=== PATIENT | male | born 1975 | race Caucasian/White ===

== ENCOUNTER 2025-03-05 09:48 | Outpatient (AMB) | payer MEDICARE, MEDICAID, SELFPAY ==
[2025-03-05 10:22] VITALS: BP 136/90; PULSE 80; RESP 16; O2SAT 97
--- NOTE | 2025-03-05 10:22 | MHC.OFFVIS ---
Vital Signs 03/05/25 10:22 BP 136/90 H Blood Pressure Location Lt brachial Position Sitting Respiration 16 Pulse 80 Pulse Oximetry (%) 97 Intake Visit Reasons: 6M Myelopathy Facility Practice Specialist Required: No Correctional Captain: Correctional Captain Present Allergies phenytoin (From Dilantin) Allergy (Unknown, Verified 03/05/25 10:22) Unknown Medication List - Last Reconciled 03/05/25 by Susan Diaz CNP baclofen 5 mg PO DAILY calcium citrate-vitamin D3 200 mg-6.25 mcg (250 unit) tabs PO carbamazepine ER 100 mg PO BID famotidine 20 mg PO BID fluvoxamine 100 mg PO BID tamsulosin mg PO HPI Comments Details: Claudy is a 49-year-old male patient with a history of CP following in the clinic for a diagnosis of cervical myelopathy and seizures. He was last seen in August of 2024 by Susie MAC at which time he reported some improvement in his right leg weakness, no seizures, no trouble when eating drinking or swallowing. According to documentation, it been admitted to [facility] with diagnosis of transverse myelitis with Neurosurgery consult for cervical cord compression which is chronic and he was advised against surgery. He does also have history of cerebral palsy, seizure disorder, autism, and OCD. It was in August of 2022 there was a dramatic and progressive change in his ability to ?get around? and he was initially dragging his toes and feet with knee started to buckle. There was also some weakening in the core muscles but without significant change in the use of his arms. Seemingly, with her via documentation, he has been relatively stable since this time. He presents to the clinic today accompanied by his mother and a long-term staff member. Together they report that Claudy has been much more stiff lately and that he has been seemingly more uncomfortable due to his lower extremity stiffness. His overall function has been only slightly impacted though his mother expresses the desire to maintain his ability to comfortably transfer out of his wheelchair with some weight bearing. Had been on baclofen in the past which his mother recalls working well though may have caused him somnolence. She cannot recall the dose that he had been on prior. He has not had any known seizure activity and he remains on carbamazepine 100mg twice daily. [facility] Medical History (Updated 03/08/25 @ 22:47 by Susan Bechthold, [employer]) Seizure disorder Autism Cervical myelopathy Review of Systems Const All systems reviewed & are unremarkable except as noted in HPI and below Physical Exam Vital Signs: Last Vital Signs Pulse 80 03/05/25 10:22 Resp 16 03/05/25 10:22 BP 136/90 H 03/05/25 10:22 Pulse Ox 97 03/05/25 10:22 Const General: cooperative, no acute distress and other (Repeats others around him) Orientation/consciousness: oriented to person Neuro General: oriented to person and Unable to assess gait Cognition (Neuro): abnormal cognition (Follows simple commands, repeats others around him, difficult comprehension) Gait exam (Neuro): Unable to assess gait Motor exam (neuro): Abnormal muscle tone present (Stiffness to the BLE at the hips, knees, and ankles bilaterally) Deep tendon reflexes (DTR's): Rt Biceps (C5, C6): 2+, Left biceps reflex intensity grade: 2+, Right brachioradialis reflex intensity grade: 2+, Left brachioradialis reflex intensity grade: 2+, Right patellar reflex intensity grade: 3+, Left patellar reflex intensity grade: 3+, Right ankle reflex intensity grade: 2+ and Left ankle reflex intensity grade: 2+ Assessment & Plan Assessment & Plan (1) Seizure disorder: Code(s): G40.909 - Epilepsy, unspecified, not intractable, without status epilepticus Category: Medical (2) Cervical myelopathy: Code(s): G95.9 - Disease of spinal cord, unspecified Category: Medical (3) Muscle stiffness: Code(s): M62.89 - Other specified disorders of muscle Category: Medical Plan Claudy is a 49-year-old male patient with a history of CP following in the clinic for a diagnosis of cervical myelopathy and seizures. He has not had any recent seizures that anyone is aware of. The primary concern today is regarding some muscle stiffness to his lower extremities and his ability to maintain function. I am recommending PT. Family and staff both request in-home PT as it would be extremly difficult to complete this out of the home. I am also recommending a trial of low dose baclofen to assist with the muscle stiffness and discomfort. Could consider referral to physical medicine and rehabilitation at [facility] if needed in future. -Home PT for worstening stiffness of lower extremities -Baclofen low dose (start with 5mg daily) will eventially increase to 5mg twice daily if tollerating. Can continue increasing if indicated/tollerated in future. -Follow-up 4 months Medications: New baclofen 5 mg PO DAILY 30 tabs 5RF Coding Level of Care Code Est Pt Level 4 (74901) Diagnoses Seizure disorder G40.909 Cervical myelopathy G95.9 Muscle stiffness M62.89
--- OUTSIDE RECORDS SUMMARY | 2025-03-05 11:44 | XMS_ITS | Encounter Summary ---
Author Organization [facility] Address [address] [place] [address] Phone Care Team Providers Care Lift Supervisor Name Role Phone Luiza Tinsley MD Unavailable [phone] Luiza Tinsley MD Primary Care Provider [phone] Ava Bruno MD Unavailable [phone] Encounter Details Date Type Department Care Team (Late st Contact Info) Description 06/29/[address] [phone] Luiza Tinsley MD [address] [place] [phone] Social History Tobacco Use Types Packs/Day Years Used Date Smoking Tobacco: Never Smokeless Tobacco: Never Sex and Gender Information Value Date Recorded Sex Assigned at Not on file Legal Sex Male 9:30 PM EDT Gender Identity Not on file Sexual Orientation Not on file documented as of this encounter Plan of Treatment Upcoming Encounters Date Type Department Care Team (Late st Contact Info) Description 03/12/2025 10:00 AM EDT Office Visit [address] [address] Luiza Tinsley MD [address] [place] [address] [phone] documented as of this encounter Visit Diagnoses Not on filedocumented in this encounter Additional Health Concerns Infection Onset Date Last Indicated Resolved Time CoV-Risk 09/10/2023 09/10/2023 09/21/2023 1:21 AM EDT CoV-Risk 02/20/2024 02/20/2024 03/02/2024 1:23 AM EDT documented as of this encounter Care Teams Lift Supervisor Relationship Specialty Start Date End Date Luiza Tinsley MD [address] [place] [address] [address] [place] [address] [email or web address] PCP - General Family Medicine 11/12/19 Luiza Tinsley MD [address] [place] [address], [facility] [address] [place] [address] [email or web address] Insurance Assigned Provider 09/15/23 Ava Bruno MD [address] [place] [address] [place] [address] Neurology 12/13/22 documented as of this encounter Additional Source Comments The information contained in this document represents components of the legal health record. It is not the complete legal health record.[facility]
--- OUTSIDE RECORDS SUMMARY | 2025-03-05 11:44 | XMS_ITS | Encounter Summary ---
Author Organization [facility] Address [address] [place] [address] [place] [phone] Phone Care Team Providers Care Manager Pharmaceutical Name Role Phone Luiza Tinsley MD Unavailable [phone] Luiza Tinsley MD Primary Care Provider [phone] Ava Bruno MD Unavailable Encounter Details Date Type Department Care Team (Late st Contact Info) Description 12/13/2022 Procedure Pass [facility], [address] [address] Social History Tobacco Use Types Packs/Day Years Used Date Smoking Tobacco: Never Smokeless Tobacco: Never Education Answer Date Recorded Are you interested in more education? Not on jose e 10/06/2022 Are you concerned about learning? Not on file 10/06/2022 No 10/06/2022 No 10/06/2022 Digital Access Answer Date Recorded No 11/06/2022 No 11/06/2022 Reliable internet access at home? Not on file 11/06/2022 Device with a working camera? Not on file Sex and Gender Information Value Date Recorded Sex Assigned at Not on file Legal Sex Male 9:30 PM EDT Gender Identity Not on file Sexual Orientation Not on file documented as of this encounter Plan of Treatment Upcoming Encounters Date Type Department Care Team (Late st Contact Info) Description 03/12/2025 10:00 AM EDT Office Visit [facility] [address] [place] [address] Luiza Tinsley MD [address] [facility], [facility] [address] [place] [address] [email or web address] documented as of this encounter Visit Diagnoses Not on filedocumented in this encounter Additional Health Concerns Infection Onset Date Last Indicated Resolved Time CoV-Risk 09/10/2023 09/10/2023 09/21/2023 1:21 AM EDT CoV-Risk 02/20/2024 02/20/2024 03/02/2024 1:23 AM EDT documented as of this encounter Care Teams Manager Pharmaceutical Relationship Specialty Start Date End Date Luiza Tinsley MD [address] [place] [phone] [email or web address] PCP - General Family Medicine 11/12/19 Luiza Tinsley MD [address] [place] [address] [email or web address] Insurance Assigned Provider 09/15/23 Ava Bruno MD [address] [place] [address] [place] [address] Neurology 12/13/22 documented as of this encounter Additional Source Comments The information contained in this document represents components of the legal health record. It is not the complete legal health record.[facility]
--- OUTSIDE RECORDS SUMMARY | 2025-03-05 11:44 | XMS_ITS | Encounter Summary ---
Author Organization [facility] Address [address] [place] [address] [place] [phone] Phone Care Team Providers Care Smokehouse Worker Name Role Phone Luiza Tinsley MD Unavailable [phone] Luiza Tinsley MD Primary Care Provider [phone] Ava Bruno MD Unavailable [phone] Encounter Details Date Type Department Care Team (Late st Contact Info) Description 12/12/2022 Procedure Pass [facility], [facility] - [address] [address] Social History Tobacco Use Types Packs/Day Years [...] Description 03/12/2025 10:00 AM EDT Office Visit [facility] [address] [place], [place] [phone] Luiza Tinsley MD [address] [facility], [facility] [address] [place] [address] [email or web address] documented as of this encounter Visit Diagnoses Not on filedocumented in this encounter Additional Health Concerns Infection Onset Date Last Indicated Resolved Time CoV-Risk 09/10/2023 09/10/2023 09/21/2023 1:21 AM EDT CoV-Risk 02/20/2024 02/20/2024 03/02/2024 1:23 AM EDT documented as of this encounter Care Teams Smokehouse Worker Relationship Specialty Start Date End Date Luiza Tinsley MD [address] [place] [address] [address] [place] [phone] [email or web address] PCP - General Family Medicine 11/12/19 Luiza Tinsley MD [address] [place] [address] 7 [place] [address] [email or web address] Insurance Assigned Provider 09/15/23 Ava Bruno MD [address] [place] [address] [place] [address] Neurology 12/13/22 documented as of this encounter Additional Source Comments The information contained in this document represents components of the legal health record. It is not the complete legal health record.[facility] [place] [facility]
--- OUTSIDE RECORDS SUMMARY | 2025-03-05 11:44 | XMS_ITS | Clinical Summary ---
Author Organization [facility] Address [address] [facility] [address] [place] [id number] Phone Care Team Providers Care House Wrecker Name Role Phone Luiza Tinsley MD Unavailable [phone] Luiza Tinsley MD Primary Care Provider Ava Bruno MD Unavailable [phone] Allergies Active Allergy Reactions Criticality Noted Date Comments Bleach (Sodium Hypochlorite) 11/08/2017 Pt doesn't know which reaction Phenytoin Sodium Extended 11/08/2017 Pt is unaware of which kind of reaction Udrmhiw-Vfo-Qje Reductase Inhibitors 11/08/2017 Pt doesn't know which reaction Medications ketoconazole (NIZORAL) 2 % shampoo USE THREE TIMES PER WEEK ON MON, WED, AND FRI 120 mL 4 Active Additional Information Patient not taking.Reported on 12/26/2024 loratadine (CLARITIN) 10 mg tabletIndication s:Seasonal allergies Take 1 tablet (10 mg total) by mouth daily as needed for allergies (for itchy/watery eyes or runny nose). 30 tablet 2 4 Active calcium citrate-vitamin D3 (CITRACAL+D) 950 mg (200 mg elemental)-250 units Tab TAKE 2 TABLETS (CALCIUM CITRATE 400 MG / VIT D 500 UNITS) BY MOUTH DAILY IN AM A NUTRITIONAL SUPPLEMENT 60 tablet 11 5 Active bacitracin 500 unit/gram ointmentIndicati ons:Medication refill APPLY A SMALL AMOUNT TOPICALLY TO MINOR CUTS AND SCRAPES DAILY NEEDED - CALL PCP IF NOT IMPROVED IN 24 HOURS 28 g 3 5 Active white petrolatum ointment APPLY A SMALL AMOUNT TOPICALLY INTO NOSTRILS NEEDED FOR NOSE BLEEDS IC: VASELINE 368 g 1 5 Active diclofenac sodium (VOLTAREN) 1 % Gel APPLY A SMALL AMOUNT TOPICALLY TO AFFECTED JOINTS NEEDED FOR PAIN UP TO TWO TIMES PER DAY CALL MD IF NOT EFFECTIVE IN 48 HRS 100 g 2 5 Active guaiFENesin (ALVARADO-TUSSIN) 100 mg/5 mL syrupIndications :Medication refill TAKE 10ML (200 MG) BY MOUTH EVERY 4 HOURS NEEDED FOR CHEST CONGESTION / CALL PCP IF NOT IMPROVED IN 3 DAYS OR WITH TEMP ABOVE 100 DEGREES 236 mL 3 5 Active selenium sulfide 2.25 % Sham APPLY TOPICALLY TWO TIMES A WEEK 180 mL 5 Active acetaminophen (TYLENOL) 325 mg tabletIndication s:Medication refill TAKE 2 TABS (650 MG) BY MOUTH EVERY 6 HOURS NEEDED FOR COMPLAINT OF HEADACHE, PAIN, OR FEVER OVER 100 DEGREES / CALL PCP IF SYMPTOMS LAST OVER 48 HRS 30 tablet 2 5 Active famotidine (PEPCID) 20 MG tablet TAKE 1 TABLET BY MOUTH TWICE DAILY FOR ACID REFLUX 180 tablet 3 5 Active polyethylene glycol (MIRALAX) 17 gram/dose powderIndication s:Chronic idiopathic constipation Take 17 g by mouth every morning. 1700 g 3 5 Active fluvoxaMINE (LUVOX) 100 MG tabletIndication s:Medication refill TAKE 2 TABLETS (200 MG) BY MOUTH EVERY NIGHT AT BEDTIME FOR OCD 180 tablet 3 5 Active magnesium hydroxide 400 mg/5 mL SuspIndications: Constipation TAKE 30 ML (2,400 MG) BY MOUTH NEEDED IF NO BOWEL MOVEMENT IN 3 DAYS / FOR CONSTIPATION CALL MD IF NO RESULTS IN 24 HOURS / GIVE ON 2ND SHIFT 354 mL 2 5 Active carBAMazepine (TEGRETOL XR) 100 MG 12 hr tabletIndication s:Seizure disorder TAKE 1 TABLET BY MOUTH TWICE DAILY FOR SEIZURES 60 tablet 3 5 Active Active Problems Problem Noted Date Diagnosed Date Rash and other nonspecific skin eruption 025 Assessment & Plan (01/05/2025 11:39 AM EDT): Uday's rash of the left groin is improving. I advised his butt welder to continue with powder-I refilled this today. Follow-up if this does not improve or if this gets worse. They understand and agree. Urinary urgency 12/26/2024 Assessment & Plan (01/05/2025 11:40 AM EDT): Uday's urinary urgency has improved with the improvement in the rash-this is likely secondary to an irritant. I advised him and his butt welder to continue with the powder. They will call if there are any other issues or concerns. They understand and agree. I have maintained a long-term relationship with the patient, overseeing the care of their urinary urgency. This has significantly influenced my decision-making and treatment plans during today's encounter. Assessment & Plan (12/26/2024 3:36 PM EDT): Uday presents with his mom and butt welder for urinary urgency which has been going on for the past 6 months and getting worse. No blood in the urine, no nausea or vomiting. No fevers or chills. He had 2 urinalysis with reflex as-both were negative this month and last month. I did not repeat them today. I ordered a PSA, CMP and CBC and I will update him with the results. I suspect an enlarged prostate. I placed a referral to urology for consult today. I gave guidance to follow-up with PCP in 2 weeks and to call if this is getting worse or if his symptoms are changing. They understand and agree to the plan of action. Screening for prostate cancer 12/26/2024 Assessment & Plan (12/26/2024 3:35 PM EDT): Uday is due for PSA-I will update him with result. Chronic idiopathic constipation 10/09/2024 Overview (10/09/2024): 10/2024 start miralax daily 1 cap Skin lesion of back 05/16/2024 Assessment & Plan (05/16/2024 3:55 PM EST): Uday presents from his skilled nursing by his caretakers today for a changing nevus on his back. I put a referral to dermatology for consult. They were appreciative. I informed him to call if there are any other issues or concerns. Paperwork filled out today in the office. Mixed hyperlipidemia 04/17/2024 Overview (11/06/2024): Ldl is high but mom and dad both had bad reactions to statins and they dont want him to try. Mom had anaphylaxis and dad has muscle cramps His risk is only 3.9% 2023 Mom does not want him to try statin 10/2024 we will get CAC score as his LDL is high and both parents have vascular disease it seems. We should refer to preventive cards if this is above 0. - it is 0!! Seasonal allergies 10/09/2023 Overview (10/09/2023): Claritin 10 mg as needed for runny nose and itchy eyes Urinary incontinence 09/10/2023 Assessment & Plan (09/10/2023 10:30 AM EDT): Uday has been experiencing some urinary incontinence. This may be a stress response secondary to the coughin but I also want to rule out a UTI thus ordered a urinalysis with reflex today and I will update him with the result. I informed his butt welder to call if there are any other issues or concerns such as a fever. They understand and agree. 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 Assessment & Plan (12/25/2022 2:21 PM EDT): Uday was admitted to [facility] on 12/14/2022 and discharged on 12/19/2022 for a cord compression. I reviewed the MRI that was done at [facility]. He has appoint with Dr. Stevo Nguyen in January. His mom will call if there are any other issues or concerns. 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 No cause found. Still working on getting full strength back. Assessment & Plan (12/25/2022 2:23 PM EDT): Uday was diagnosed with myelitis while at [facility]- 12/14/2022 through 12/19/2022. He was given steroids. His infection improved. His mom and sister note that he is back to baseline. I will have him go for CBC and a CMP and I will update him with the results. They will call if there are any other issues or concerns. Follow-up with her PCP in 3 months. They understand and agree. Weight loss 03/23/2021 Overview (03/28/2022): Usually 120 lbs 2020 had 20 lb weight loss and has gained some back Now 113 but stable Now 127, much healthier Cerebral palsy 11/08/2017 Overview (11/19/2018): Well cared for in skilled nursing and by family Assessment & Plan (01/05/2025 11:39 AM EDT): Currently well cared for by his skilled nursing and mom. Eczema 11/08/2017 Overview (11/08/2017): mixed with jluis derm on face - low dose steroids and antifungal mod dose top steroid on body Routine health maintenance 11/08/2017 Overview (04/11/2024): No need for cancer screening right now - doing FIT test for now. Mom says that he could not do colonoscopy. His dad does testicular exam Labs yearly for his tegretol here We will start calcium and D for his bone health Eyes, dental Skin checks at his home Seizure disorder 11/08/2017 Overview (11/19/2018): no seizue activity since he was 12. he does not see neuro anymore. we prescribe and do labs. tegretol should do labs for carbamazepine yearly. blood conc cbc and diff iron yearly hepatic fcn BUN urinalysis ophth exam Mixed obsessional thoughts and acts 11/08/2017 Overview (2023): seeing psych and being treated with luvox which is helping with this and irritability. i am taking over this rx. he is taking 200 mg IR once daily at HS. could try BID if he starts to not do well on this. self injury was the original reason for meds 03/2023 we will try to increase his Luvox back to 200 from 150 to see if this helps with his outbursts. Resolved Problems Problem Noted Date Diagnosed Date Resolved Date Sore throat 09/10/2023 10/09/2023 Assessment & Plan (09/10/2023 10:30 AM EDT): Uday presents with his caretakers for sore throat going on for the past week or so. I ordered a strep test to be done and I will update him with the result. He may have seasonal allergies thus I wrote for Claritin-to be taken daily for the next month. I filled out paperwork today for his skilled nursing. Follow-up as needed or if his symptoms are getting worse. His caretakers understand and agree. Acute cough 09/10/2023 04/11/2024 Assessment & Plan (02/20/2024 12:19 PM EDT): Likely viral uri, symptoms improved with tussin. No concerning findings, no indication for CXR today as lung exam is nonconcerning. Advised to continue supportive medications and stay well hydrated. Follow up for worsening symptoms to include fever or shortness of breath. Cephied pending, will call with positive results. Assessment & Plan (09/10/2023 10:29 AM EDT): Uday presents with a cough from his skilled nursing. This is been going on a week now. I will have him go for a COVID, RSV, flu test today and I will update him with the result. I gave guidance regarding symptomatic management for now and add Claritin to be taken daily for the next month to see if this will help as this may be seasonal allergies. I advised him to get a chest x-ray later this week if his cough continues-I wrote the phone number down for his caretakers. Follow-up as needed-earlier if his symptoms are getting worse. Medication refill 12/25/2022 2023 Assessment & Plan (12/25/2022 2:24 PM EDT): I refilled his Luvox today-to be taken as directed. Follow-up with the PCP in 3 months. Weakness 12/25/2022 2023 Assessment & Plan (12/25/2022 2:24 PM EDT): Uday's weakness improved status post getting steroids for his myelitis. He still has ongoing weakness and I do want him to go for physical therapy. He is homebound thus I put a referral into home health care. His mom was appreciative. They will call if there are any other issues or concerns. Swallowing disorder 12/25/2022 04/11/20 Assessment & Plan (12/25/2022 2:23 PM EDT): I referred him to ENT for a consult regarding ongoing issues with swallowing. Encounters Date Type Department Care Team Description 01/21/2025 Telephone [facility] [address] [place] [address] Luiza Tinsley MD Forms & Paperwork 01/05/2025 11:15 AM EDT Office Visit [facility] [address] [place] [address] Fernando Elliott DO Rash and other nonspecific skin eruption (Primary Dx); Urinary urgency; Cerebral palsy, unspecified type 01/05/2025 Refill [facility] [address] [place] [address] Leslie Morse PA-C Medication Refill 12/30/2024 Telephone [facility] [address] [place] [address] Luiza Tinsley MD Follow Up Visit (ED FUV + 12/28 + rash + unable to schedule) 12/28/2024 1:29 AM EDT - 12/28/2024 2:19 AM EDT Emergency [facility] [address] [place] [address] Jose Whaley, DO Discharge Disposition: Home or Self Care 12/26/2024 3:39 PM EDT - 12/26/2024 11:59 PM EDT Hospital Encounter [facility] [address] [place] [address] Fernando Elliott, DO Discharge Disposition: Home or Self Care 12/26/2024 3:15 PM EDT Office Visit [facility] [address] [place] [address] Fernando Elliott, DO Urinary urgency (Primary Dx); Screening for prostate cancer 12/23/2024 12:06 PM EDT - 12/23/2024 11:59 PM EDT Hospital Encounter [facility] [address] [place] [address] Sabino José MD Discharge Disposition: Home or Self Care 12/19/2024 Orders Only [facility] [address] [place] [address] Sabino José MD Urinary frequency (Primary Dx) 12/19/[address] [address] Luiza Tinsley MD Triage (Green call - Pt still has UTI symptoms - last lab was 11/20) 12/09/2024 10:00 AM EDT Office Visit [address] [address] Desmond Nair, MAILER Tinea of groin (Primary Dx) 12/08/[address] [address] Luiza Tinsley MD Triage (Nurse callback-rash left side of thigh) from Last 3 Months Immunizations Immunization Administration Dates Next Due COVID-19 (Pre-04/02) Pfizer Vaccine, mRNA, PF 03/30/2021,07/22/2020,07/01/2020 COVID-19 Moderna Spikevax Vaccine 12+ 04/23/2024 Hepatitis B, unspecified formulation 08/30/2005, 09/19/2004,08/19/2004 INFLUENZA, SPLIT VIRUS, TRIVALENT PF 03/16/2016 INFLUENZA, SPLIT VIRUS, TRIV ALENT W/ PRESERVATIVE IM 03/28/2022,04/18/2011 Influenza Quadrivalent Prese rvative Free IM 03/22/2023,03/28/2022,03/23/2021,04/08,03/14/2018,02/27/2017,04/11/2007 Influenza Quadrivalent w/ Pr eservative IM 04/02/2015 Influenza Recombinant Johnny valent Preservative Free IM 05/20/2019 Influenza trivalent preserva tive free intradermal 03/26/2014,04/24/2013 Influenza, Unspecified Formulation 04/23/2012 PPD Test 08/17/2004 Pneumococcal polysaccharide PPSV23 08/19/2004 Td (adult) 5 Lf Tetanus Toxo id, PF, Adsorbed 08/17/2004 Tdap 07/27/2015 Zoster recombinant 05/16/2024 Family History Medical History Relation Comments Benign prostatic hyperplasia Father Bladder Cancer Father Coronary artery disease Father Melanoma Father Skin cancer Father CV disease Maternal Grandfather Cancer Maternal Grandmother Coronary artery disease Mother Other Mother mixed ct disease Cancer Paternal Grandmother Relation Status Comments Father Alive Maternal Grandfather Alive Maternal Grandmother Mother Alive Paternal Grandmother Social History Tobacco Use Types Packs/Day Years Used Date Smoking Tobacco: Never Smokeless Tobacco: Never Tobacco Cessation:Counseling Given: Not Answered Home Health Assessment: Transportation Answer Date Recorded Lack of Transportation (Medical) No 05/11/2023 Lack of Transportation (Non-Medical) No 05/11/2023 Patient Unable or Declines to Respond No 05/11/2023 Child or Family Care Answer Date Record ed Do you have problems with on e of the following making it difficult for you to work, study, or receive health care? No 04/04/2023 Education Answer Date Recorded Are you interested in help w ith more adult education (for example, completing high school, GED, job training, learning the Nepali language, technical skills, or developing parenting skills)? No 04/04/2023 Are you concerned about learning? Not on file 04/04/2023 No 04/04/2023 Yes 04/04/2023 Food Answer Date Recorded Within the past 6 months we worried whether our food would run out before we got money to buy more. Never True 12/28/2024 Within the past 6 months the food we bought just didn't last and we didn't have enough money to get more. Never True Residential Stability Answer Date Recor ded What is your housing situation today? I have yue sing 12/28/2024 How many times have you move d in the past 12 months? Zero (I did not move) 12/28/2024 Paying for Meds Answer Date Recorded Do you have trouble paying for medicines? No 12/28/2024 Paying Utility Bills Answer Date Record ed Do you have trouble paying your heating or elect ricity bill? No 12/28/2024 Transportation Answer Date Recorded Has the lack of transportati on kept you from medical appointments or from getting medications? No 12/28/2024 Digital Access Answer Date Recorded No 12/28/2024 Yes 12/28/2024 Do you have reliable internet access at home? Ye s 12/28/2024 Do you have a device (e.g., phone, tablet, computer) with a working camera? Yes 12/28/2024 Intimate Partner Violence Answer Date R ecorded Are you denied basic needs s uch as food, clothing, or medical care? No 12/28/2024 In the past 12 months have y ou been in a relationship with a person who hurts, threatens, or tries to control you? No 12/28/2024 Are you denied basic needs s uch as food, clothing, or medical care? No 12/28/2024 In the past 12 months have y ou been in a relationship with a person who hurts, threatens, or tries to control you? No 12/28/2024 Sex and Gender Information Value Date Recorded Sex Assigned at Not on file Legal Sex Male 9:30 PM EDT Gender Identity Not on file Sexual Orientation Not on file Last Filed Vital Signs Vital Sign Reading Time Taken Comments Blood Pressure 118/76 01/05/2025 11:25 AM EDT Pulse 79 01/05/2025 11:25 AM EDT Temperature 36.5 C (97.7 F) 01/05/2025 11:25 AM EDT Respiratory Rate 16 12/28/2024 1:22 AM EDT Oxygen Saturation 99% 01/05/2025 11:25 AM EDT Inhaled Oxygen Concentration - - Weight 63.5 kg (140 lb) 12/28/2024 1:22 AM EDT Height 154.9 cm (5' 1 ) 01/05/2025 11:25 AM EDT Body Mass Index 26.45 12/28/2024 1:22 AM EDT Plan of Treatment Upcoming Encounters Date Type Department Care Team (Late st Contact Info) Description 03/12/2025 10:00 AM EDT Office Visit [facility] [address] [place] [address] Luiza Tinsley MD [address], [address] [place] [address] [email or web address] Health Maintenance Due Date Last Done Comments COLOGUARD 2019 COLONOSCOPY 2019 FOBT 2019 SIGMOIDOSCOPY 2019 VIRTUAL COLONOSCOPY 2019 COLORECTAL CANCER SCREENING 10/10/2024 FIT TEST 10/10/2024 10/11/2023, 01/02/2020 INFLUENZA VACCINE (#1) 2025 , 03/22/2023, 03/28/2022, Additional history exists DEPRESSION SCREENING 04/09/2025 04/09/2024 CARBAMAZEPINE (TEGRETOL) LEVEL 04/16/2025 04/16/2024, 2023, 01/10/2022, Additional history exists LIPID PANEL 04/16/2025 04/16/2024, 03/13, 2023, Additional history exists Adult Td,Tdap Booster 07/27/2025 07/27/2015, 005 SCREENING FOR DIABETES 12/27/2027 12/26/2024, 2019 HEPATITIS C SCREENING Completed 12/21/2020, 021 COVID-19 VACCINE Completed 04/23/2024, 05/2023, 03/30/2022, Additional history exists PNEUMOCOCCAL VACCINES (50+ years) Completed 10/16/2024, 08/19/2004 ZOSTER VACCINES Completed 10/16/2024, 05/16/2024 SMOKING STATUS SCREENING (Once After 26 Yrs) Completed 12/28/2024 HEPATITIS A VACCINES Aged Out No long er eligible based on patient's age to complete this topic HIB VACCINES Aged Out No longer eligi ble based on patient's age to complete this topic MENINGOCOCCAL VACCINES (ACWY) Aged Out No longer eligible based on patient's age to complete this topic MENINGOCOCCAL VACCINES (B) Aged Out N o longer eligible based on patient's age to complete this topic Medical Devices Not on file Procedures Procedure Name Priority Date/Time Associated Diagnosis Comments COMPREHENSIVE METABOLIC PANEL Routine 12/26/2024 3:39 PM EDT Urinary urgency PSA (SCREENING) Routine 12/26/2024 3:39 PM EDT Urinary urgency Screening for prostate cancer CBC Routine 12/26/2024 3:39 PM EDT Urinary urgency URINALYSIS W/REFLEX URINE CULTURE Routine 12/23/2024 3:35 PM EDT Urinary frequency LIPID PANEL Routine 04/16/2024 8:29 AM EST Routine health maintenance CARBAMAZEPINE (TEGRETOL) LEVEL Routine 04/16/2024 8:29 AM EST Seizure disorder HC BLOOD OCCULT FECAL HGB DETER IA QUAL FECES 1-3 Routine 10/11/2023 5:30 PM EDT Screening for colon cancer HEPATITIS C ANTIBODY, QUALITATIVE Routine 12/21/2020 10:40 AM EDT Need for hepatitis C screening test from Last 3 Months or Most Recently Relevant to Health Maintenance Results * (ABNORMAL) Comprehensive metabolic panel (12/26/2024 3:39 PM EDT) SODIUM 138 133 - 146 mmol/L [facility] POTASSIUM 4.2 3.3 - 5.1 mmol/L [facility] CHLORIDE 99 96 - 108 mmol/L [facility] CO2 28 21 - 35 mmol/L [facility] BUN 13 6 - 19 mg/dL [facility] CREATININE 0.80 0.5 - 1.5 mg/dL [facility] GLUCOSE 104(H) 70 - 99 mg/dL [facility] ALBUMIN 4.3 3.9 - 4.8 g/dL [facility] TOTAL PROTEIN 7.2 6.5 - 8.0 g/dL [facility] CALCIUM 9.5 8.4 - 10.3 mg/dL [facility] ALKALINE PHOSPHATASE 89 39 - 117 U/L [facility] TOTAL BILIRUBIN <0.2 0.0 - 1.2 mg/dL [facility] AST 24 0 - 37 U/L [facility] ALT 26 0 - 40 U/L [facility] GLOBULIN 2.9 1 - 4.8 g/dL [facility] EGFR 108 >59 mL/min/1.7 3m2 [facility] Comment:Estimated glomerular filtration rate calculated using the CKD-EPI refit equation. ANION GAP 15 10 - 20 mmol/L [facility] Blood 12/26/2024 3:39 PM EDT 12/26/2024 3:42 PM EDT us Fernando Elliott DO LAB BLOOD ORDERABLES Final Resul t Performing Organization Address City/State/[facility] Co de Phone Number [address] [phone] * CBC (12/26/2024 3:39 PM EDT) WBC 6.80 4.00 - 11.00 K/uL [facility] RBC 4.93 4.50 - 5.90 M/uL [facility] HGB 14.7 13.5 - 17.5 g/dL [facility] HCT 44.6 41.0 - 53.0 % [facility] PLT 228 150 - 450 K/uL [facility] MCV 90.5 80.0 - 100.0 fL [facility] MCH 29.8 27.0 - 31.0 pg [facility] MCHC 33.0 32.0 - 36.0 g/dL [facility] RDW 11.9 11.5 - 14.5 % [facility] MPV 9.8 8.4 - 12.0 fL [facility] NRBC 0.00 0.00 /100 WBCs [facility] ABSOLUTE NRBC 0.00 0.00 K/uL [facility] Blood 12/26/2024 3:39 PM EDT 12/26/2024 3:42 PM EDT us Fernando Elliott DO LAB BLOOD ORDERABLES Final Resul t Performing Organization Address [facility] Co de Phone Number [address] [address] * PSA (screening) (12/26/2024 3:39 PM EDT) PSA 1.35 0 - 4.00 ng/mL [facility] Comment: Test Methodology César [id number] Patient results determined by assays using different manufacturers or methods may not be comparable. Blood 12/26/2024 3:39 PM EDT 12/26/2024 3:42 PM EDT us Fernando Elliott DO LAB BLOOD ORDERABLES Final Resul t Performing Organization Address [facility] de Phone Number [address] [address] * Urinalysis w/reflex Urine Culture (12/23/2024 3:35 PM EDT) COLOR Yellow Yellow [facility] CLARITY CLOUDY [facility] GLUCOSE Negative Negative [facility] BILI Negative Negative [facility] KETONES Negative Negative [facility] SPECIFIC GRAVITY 1.015 1.005 - 1.030 [facility] BLOOD Negative Negative [facility] PH 8.0 5.0 - 8.0 [facility] Protein-UA Negative Negative [facility] NITRITE Negative Negative [facility] Leukocyte esterase, ur Negative Negative [facility] Urine (Urine) 12/23/2024 3:3 5 PM EDT 12/24/2024 12:08 PM EDT us Sabino José MD URINE ORDERABLES Final Result Performing Organization Address [facility] Co de Phone Number [address] [address] * (ABNORMAL) Carbamazepine (Tegretol) level (04/16/2024 8:29 AM EST) CARBAMAZEPINE 7.7(L) 8.0 - 12.0 ug/mL [facility] Blood 04/16/2024 8:29 AM EST 04/16/2024 8:35 AM EST us Luiza Tinsley MD LAB BLOOD ORDERABLES Final R esult Performing Organization Address [facility] de Phone Number [address] [address] * (ABNORMAL) Lipid panel (04/16/2024 8:29 AM EST) HDL 56 mg/dL [facility] Comment: Interpretation <40 mg/dL: Low HDL cholesterol (major risk factor for CHD) Greater than or equal to 60 mg/dL: High HDL cholesterol ( negative risk factor for CHD) HDL - cholesterol is affected by a number of factors, e.g. smoking, excerise, hormones, sex and age. CHOLESTEROL 250(H) 0 - 240 mg/dL [facility] TRIGLYCERIDES 74 30 - 160 mg/dL [facility] LDL 179(H) 50 - 129 mg/dL [facility] Comment: LDL levels in terms of risk for coronary heart disease: <100 mg/dL: Optimal 100-129 mg/dL: Near or above optimal 130-159 mg/dL: Borderline high 160-189 mg/dL: High >190 mg/dL: Very High CARDIAC RISK RATIO 4.5 3.4 - 5.0 C [facility] Blood 04/16/2024 8:29 AM EST 04/16/2024 8:36 AM EST us Luiza Tinsley MD LAB BLOOD ORDERABLES Final R esult Performing Organization Address [facility] Center/[facility] Co de Phone Number [address] [address] * Fecal immunochemical test x1 (FIT) (10/11/2023 5:30 PM EDT) Immuno Fecal Occult Negative Negative [facility] Stool (Stool) 10/11/2023 5:3 0 PM EDT 10/15/2023 11:54 AM EDT Luiza Tinsley MD BODY FLUIDS AND STOOLS ORDER KYE Final Result Performing Organization Address City/[facility]/ZIP Co de Phone Number [address] [address] * Hepatitis C antibody, qualitative (12/21/2020 10:40 AM EDT) HCV NON-REACTIV E NON-REACTI VE [facility] Blood 12/21/2020 10:4 0 AM EDT 12/21/2020 10:42 AM EDT Luiza Tinsley MD LAB BLOOD ORDERABLES Final R esult Performing Organization Address [facility]/ZIP Co de Phone Number [address] [address] from Last 3 Months or Most Recently Relevant to Health Maintenance Insurance MEDICARE PART A & B [facility] MEDICARE PART A & B [facility] MEDICARE PART A & B [place] & B [facility] [place] [facility] & B Member Subscriber Plan / Payer ( fective 2015-Present) Name:Claudy Singh Member ID:[id number] Relation to Subscriber:Self Name:Claudy Singh Subscriber ID:[id number] Payer ID:[id number] Group ID:Not on file Type:Medicare Address: [employer] 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 Legal Guardianship 12/13/2022 [place] Legal Guardianship Form 08/17/1992 Healthcare Agents on File Name Relationship Healthcare Agent Relationship Communication Leslee Singh Mother Other (no proxy form on file) Care Teams 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 It is not the complete legal health record.[facility]
== END 2025-03-05 10:45 | disposition home or self-care (01) ==
LOC: HO.HSM 09:49
PROVIDERS: PCP Family Medicine; Visit Provider Nurse Practitioner
DX: G40.909 Epilepsy, unspecified, not intractable, without status epilepticus (principal); G95.9 Disease of spinal cord, unspecified; M62.89 Other specified disorders of muscle
CPT/HCPCS: 99214

== ENCOUNTER → 2025-03-05 09:48 | Outpatient (BNVA) | payer MEDICARE, MEDICAID, SELFPAY | PROVIDERS: PCP Family Medicine; Visit Provider Nurse Practitioner | DX: G40.909 Epilepsy, unspecified, not intractable, without status epilepticus (principal); G95.9 Disease of spinal cord, unspecified; M62.89 Other specified disorders of muscle; F84.0 Autistic disorder | CPT/HCPCS: 99212 ==